=== PATIENT | male | born 1995 | race Caucasian/White ===

== ENCOUNTER 2017-08-30 09:09 | Day surgery (SDC) | payer MEDICAID, OTHER ==
[2017-08-26 11:31] VITALS: BP 130/79
[~2017-08-30] VITALS: Ht 162.6 cm; Wt 64.5 kg
[~2017-08-30 09:09] MED LIST: BUPIVACAINE/PF 0.5% ONE; FLUO40CA2 PO; QUET300T5 PO
[2017-08-30] MEDS ORDERED: LACTATED RINGERS 1,000 ML IV SCH ×2 (09:45→09:51)
[2017-08-30] MEDS ORDERED: CEPH-376 PO (09:50)
[2017-08-30] MEDS ORDERED: LIDOCAINE 1%, 2ML ONE (09:53)
[2017-08-30] MEDS ORDERED: LIDOCAINE 1%, 2ML SQ PRN (10:00)
[2017-08-30] MEDS ORDERED: FENTANYL PF 100 MCG/2ML ONE ×2 (13:10)
[2017-08-30] MEDS ORDERED: ROCURONIUM 10 MG/ML ONE (13:10)
[2017-08-30] MEDS ORDERED: SUCCINYLCHOLINE 20 MG/ML, 10ML ONE (13:10)
[2017-08-30] MEDS ORDERED: PROPOFOL 10 MG/ML, 20ML ONE (13:10)
[2017-08-30] MEDS ORDERED: CEFAZOLIN 1,000 MG ONE (13:10)
[2017-08-30] MEDS ORDERED: MIDAZOLAM 1 MG/ML, 2ML ONE (13:10)
[2017-08-30] MEDS ORDERED: PROMETHAZINE 25 MG/ML, 1ML IV PRN (13:30)
[2017-08-30] MEDS ORDERED: HYDROmorphone 1 MG/ML, 1ML IV PRN (13:30)
[2017-08-30] MEDS ORDERED: ACETAMINOPHEN 325 MG TABLET PO PRN (13:30)
[2017-08-30] MEDS ORDERED: ONDANSETRON 2MG/ML, 2ML IVPush PRN (13:30)
[2017-08-30] MEDS ORDERED: OXYcodone 5 MG/5 ML ORAL.SOL UDC PO PRN (13:30)
[2017-08-30] MEDS ORDERED: FENTANYL PF 100 MCG/2ML IV PRN (13:30)
[2017-08-30] MEDS ORDERED: OXYcodone 5 MG/5 ML ORAL.SOL UDC ONE (13:59)
[2017-08-30] MEDS ORDERED: ACETAMINOPHEN 650 MG/20.3 ML UDC ONE (13:59)
== END 2017-08-30 16:00 ==
LOC: OUT 09:09
PROVIDERS: ATTEND Surgery
DX: L05.91 Pilonidal cyst without abscess (principal); Z98.890 Other specified postprocedural states
CPT/HCPCS: 11770; 88304; J0330; J0690; J2250; J2704; J3010; J7120; J3490